=== PATIENT | female | born 2000 | race Caucasian/White ===

== ENCOUNTER → 2020-06-04 13:09 | Outpatient (CLI) | payer OTHER, SELFPAY ==
--- NOTE | 2020-06-04 13:19 | XR_ITS ---
PROCEDURE: XR CHEST 2V CLINICAL HISTORY: EXPOSURE TO TB, FEVER; UNSPECIFIED FEVER CAUSE COMPARISON: No exams were available for comparison FINDINGS: The cardiomediastinal silhouette and pulmonary vascularity are within normal limits. The lungs are clear without infiltrates, suspicious nodules, or pleural effusions. There is mild thoracic curvature convex right and mild lumbar curvature convex left. IMPRESSION: Thoracolumbar scoliosis otherwise negative Dictated by: Phillip Diaz MD 06/04/2020 14:20 Phillip Diaz MD in [facility] 06/04/2020 14:20
== END ==
PROVIDERS: PCP Nurse Practitioner Family; Visit Provider Nurse Practitioner Family
DX: R50.9 Fever, unspecified (principal); Z20.1 Contact with and (suspected) exposure to tuberculosis
CPT/HCPCS: 71046